=== PATIENT | male | born 1955 | race Caucasian/White ===

== ENCOUNTER → 2017-04-27 | Outpatient (CLI) | payer BC ==
--- NOTE | 2017-04-27 12:49 | RAD ---
Indication pain. No history of injury. Internally and externally rotated views of the right shoulder were obtained as well as a Y view. There are some mild degenerative changes at the AC joint. Acute bony finding is not apparent
== END | disposition home or self-care (01) ==
LOC: DXRADRC 12:08
PROVIDERS: ATTEND Nurse Practitioner Family
DX: M25.511 Pain in right shoulder (principal)
CPT/HCPCS: 73030

== ENCOUNTER → 2017-05-19 | Outpatient (CLI) | payer BC ==
--- NOTE | 2017-05-20 09:09 | RAD ---
Exam performed: 3 views right foot. History: Osteomyelitis second toe. Date of service: 05/19/17. Comparison: None available 3 views right foot findings: There is bony erosion and destruction involving the distal phalanx of the second toe with diffuse soft tissue swelling. There is generalized osteopenia. Diffuse soft tissue swelling is seen in the dorsal aspect of the foot with atheromatous calcification and soft tissue calcifications around the forefoot. Small plantar calcaneal spur. Impression: Bony erosion and destructive changes in the distal findings of the right second digit. Findings consistent with osteomyelitis.
== END | disposition home or self-care (01) ==
LOC: DXRADRC 11:45
PROVIDERS: ATTEND Podiatrist Foot & Ankle Surgery
DX: M85.88 Other specified disorders of bone density and structure, other site (principal); M77.31 Calcaneal spur, right foot
CPT/HCPCS: 73630

== ENCOUNTER → 2017-07-05 | Outpatient (CLI) | payer BC ==
--- NOTE | 2017-07-05 13:23 | RAD ---
APPROVED REPORT Patient Location : OUT-PATIENT Indications Varicose Veins Grayscale imaging of the bilateral greater and lesser saphenous veins does not reveal any evidence of thrombus on limited imaging. Spectral and color Doppler study does not reveal any evidence of reflux bilaterally. The right great saphenous vein measures 5 mm and the left great saphenous vein measures 4 mm. The bilateral lesser saphenous veins measure 3 mm. Critical Notification Critical Value: No <Conclusion> No evidence of reflux in the bilateral greater and lesser saphenous veins
== END | disposition home or self-care (01) ==
LOC: US 09:46
PROVIDERS: ATTEND Internal Medicine Cardiovascular Disease
DX: I87.1 Compression of vein (principal)
CPT/HCPCS: 93970

== ENCOUNTER → 2017-08-17 | Outpatient (CLI) | payer BC ==
[2017-08-17 15:00] LABS: FREE T4 0.97 ng/dL (0.76-1.46); THYROID STIM HORMONE (TSH) 0.974 uIU/mL (0.358-3.740)
== END | disposition home or self-care (01) ==
LOC: LAB 10:40
PROVIDERS: ATTEND Nurse Practitioner Family
DX: E03.9 Hypothyroidism, unspecified (principal)
CPT/HCPCS: 84439; 84443; 84481

== ENCOUNTER → 2017-10-27 | Outpatient (CLI) | payer BC ==
--- NOTE | 2017-10-27 11:55 | RAD ---
Bilateral feet, 6 views, 10/27/2017: History: Bilateral foot pain, neuropathy There is severe patchy bony demineralization. Since the study 12/11/2015 there has been amputation of the distal aspect of the left second toe at the PIP joint level. No acute fracture or destructive bony lesion is seen. There is moderate degenerative change at the left midfoot level particularly at the first through third tarsal-metatarsal joints. There is severe flattening of the left plantar arch. There is also moderately severe degenerative change at the left ankle joint. On the right there has been interval amputation of the second toe since the 05/19/2017 exam. No acute fracture or destructive bony lesion is seen. There is moderate degenerative change at the right midfoot level medially. There is a mild pes planus deformity. There is mild degenerative change at the right ankle joint. Several periarticular soft tissue calcifications at the right ankle level are unchanged. IMPRESSION: 1. Severe bony demineralization. 2. Previous amputations at the second toe levels bilaterally. 3. Moderate degenerative changes particularly at the midfoot levels bilaterally, and at the ankle joints, worse on the left. 4. Pes planus deformities. 5. No definite acute bony abnormality.
== END | disposition home or self-care (01) ==
LOC: DXRAD 11:04
PROVIDERS: ATTEND Podiatrist Foot & Ankle Surgery
DX: L97.529 Non-pressure chronic ulcer of other part of left foot with unspecified severity (principal); M79.671 Pain in right foot; M21.42 Flat foot [pes planus] (acquired), left foot; M21.41 Flat foot [pes planus] (acquired), right foot
CPT/HCPCS: 73630

== ENCOUNTER → 2017-12-29 | Outpatient (CLI) | payer BC ==
--- NOTE | 2017-12-29 12:37 | RAD ---
Right foot, 3 views, 12/29/2017: History: Possible osteomyelitis of the third toe Weightbearing views were obtained as requested. There is surgical absence of the second toe at the MTP joint level. There is cortical destruction involving the terminal tuft of the distal phalanx of the middle toe. On the previous study of 10/27/2017 the terminal tuft was slightly deformed, however, there were normal sclerotic margins. The findings suggest interval new bone destruction. There is adjacent soft tissue swelling. No other destructive bony lesion or fracture is seen. There are moderate scattered degenerative changes. Periarticular soft tissue calcifications are again noted in the ankle region anteriorly and posteriorly. Arterial calcifications are evident. IMPRESSION: 1. Demineralization. 2. Scattered degenerative changes. 3. Minimal cortical destruction involving the terminal tuft of the distal phalanx of the middle toe compatible with osteomyelitis.
[2017-12-29 13:06] LABS: BASO # 0.1 x10^3/uL (0.0-0.2); BASO % 1 % (0-3); EOS # 0.1 x10^3/uL (0.0-0.7); EOS % 1 % (0-3); HEMATOCRIT 42.5 % (39.0-53.0); HEMOGLOBIN 13.8 g/dL (13.0-17.5); LYMPH # 2.1 x10^3/uL (1.0-4.8); LYMPH % 21 % (24-48); MEAN CORPUSCULAR HEMOGLOBIN 29 pg (25-35); MEAN CORPUSCULAR HGB CONC 32 g/dL (31-37); MEAN CORPUSCULAR VOLUME 90 fL (79-100); MONO # 0.9 x10^3/uL (0.0-1.1); MONO % 9 % (0-9); NEUT # 6.7 x10^3uL (1.8-7.7); NEUT % 68 % (31-73); PLATELET COUNT 327 x10^3/uL (140-400); RED BLOOD COUNT 4.72 x10^6/uL (4.30-5.70); RED CELL DISTRIBUTION WIDTH 14.1 % (11.5-14.5); WHITE BLOOD COUNT 9.8 x10^3/uL (4.0-11.0)
[2017-12-29 13:17] LABS: ALBUMIN 3.5 g/dL (3.4-5.0); C REACTIVE PROTEIN 19.1 mg/L (0-3.3); CALCIUM 9.2 mg/dL (8.5-10.1); CREATININE 1.2 mg/dL (0.7-1.3); GFR 61.6; POTASSIUM 4.1 mmol/L (3.5-5.1); TOTAL BILIRUBIN 0.3 mg/dL (0.2-1.0)
[2017-12-29 14:15] LABS: SEDIMENTATION RATE 3 (0-15)
== END | disposition home or self-care (01) ==
LOC: DXRAD 11:36
PROVIDERS: ATTEND Podiatrist Foot & Ankle Surgery
DX: M86.8X7 Other osteomyelitis, ankle and foot (principal); M81.8 Other osteoporosis without current pathological fracture
CPT/HCPCS: 36415; 73630; 80053; 85025; 85651; 86140

== ENCOUNTER → 2018-12-21 | Outpatient (CLI) | payer BC ==
[2018-12-21 11:42] LABS: BASO % 1 % (0-3); EOS # 0.2 x10^3/uL (0.0-0.7); EOS % 3 % (0-3); HEMATOCRIT 39.9 % (39.0-53.0); HEMOGLOBIN 12.9 g/dL (13.0-17.5); LYMPH # 1.4 x10^3/uL (1.0-4.8); LYMPH % 22 % (24-48); MEAN CORPUSCULAR HEMOGLOBIN 27 pg (25-35); MEAN CORPUSCULAR HGB CONC 33 g/dL (31-37); MEAN CORPUSCULAR VOLUME 84 fL (79-100); MONO # 0.8 x10^3/uL (0.0-1.1); MONO % 12 % (0-9); NEUT % 63 % (31-73); PLATELET COUNT 324 x10^3/uL (140-400); RED BLOOD COUNT 4.76 x10^6/uL (4.30-5.70); RED CELL DISTRIBUTION WIDTH 16.5 % (11.5-14.5); WHITE BLOOD COUNT 6.4 x10^3/uL (4.0-11.0)
[2018-12-21 11:51] LABS: ALBUMIN 3.3 g/dL (3.4-5.0); DIRECT BILIRUBIN 0.1 mg/dL (0.0-0.2); TOTAL BILIRUBIN 0.4 mg/dL (0.2-1.0); TOTAL PROTEIN 6.7 g/dL (6.4-8.2)
== END | disposition home or self-care (01) ==
LOC: LAB 10:47
PROVIDERS: ATTEND Dermatology
DX: Z51.81 Encounter for therapeutic drug level monitoring (principal); C44.92 Squamous cell carcinoma of skin, unspecified; Z85.828 Personal history of other malignant neoplasm of skin; Z85.89 Personal history of malignant neoplasm of other organs and systems
CPT/HCPCS: 36415; 80061; 80076; 85025

== ENCOUNTER → 2019-02-23 | Outpatient (CLI) | payer BC ==
[2019-02-23 12:09] LABS: BASO % 1 % (0-3); EOS # 0.2 x10^3/uL (0.0-0.7); EOS % 3 % (0-3); HEMATOCRIT 39.4 % (39.0-53.0); HEMOGLOBIN 12.8 g/dL (13.0-17.5); LYMPH # 1.8 x10^3/uL (1.0-4.8); LYMPH % 31 % (24-48); MEAN CORPUSCULAR HEMOGLOBIN 28 pg (25-35); MEAN CORPUSCULAR HGB CONC 32 g/dL (31-37); MEAN CORPUSCULAR VOLUME 87 fL (79-100); MONO # 0.7 x10^3/uL (0.0-1.1); MONO % 12 % (0-9); NEUT # 3.1 x10^3uL (1.8-7.7); NEUT % 53 % (31-73); PLATELET COUNT 327 x10^3/uL (140-400); RED BLOOD COUNT 4.52 x10^6/uL (4.30-5.70); RED CELL DISTRIBUTION WIDTH 18.9 % (11.5-14.5); WHITE BLOOD COUNT 5.9 x10^3/uL (4.0-11.0)
[2019-02-23 12:26] LABS: ALBUMIN 3.2 g/dL (3.4-5.0); DIRECT BILIRUBIN 0.1 mg/dL (0.0-0.2); TOTAL BILIRUBIN 0.3 mg/dL (0.2-1.0); TOTAL PROTEIN 6.6 g/dL (6.4-8.2)
== END | disposition home or self-care (01) ==
LOC: LAB 11:29
PROVIDERS: ATTEND Dermatology
DX: Z51.81 Encounter for therapeutic drug level monitoring (principal); C44.92 Squamous cell carcinoma of skin, unspecified; Z85.89 Personal history of malignant neoplasm of other organs and systems; Z85.828 Personal history of other malignant neoplasm of skin
CPT/HCPCS: 36415; 80076; 85025

== ENCOUNTER → 2019-03-27 | Outpatient (CLI) | payer BC ==
[2019-03-27 11:38] LABS: BASO % 1 % (0-3); EOS # 0.2 x10^3/uL (0.0-0.7); EOS % 2 % (0-3); HEMATOCRIT 39.4 % (39.0-53.0); HEMOGLOBIN 12.6 g/dL (13.0-17.5); LYMPH # 1.7 x10^3/uL (1.0-4.8); LYMPH % 22 % (24-48); MEAN CORPUSCULAR HEMOGLOBIN 29 pg (25-35); MEAN CORPUSCULAR HGB CONC 32 g/dL (31-37); MEAN CORPUSCULAR VOLUME 89 fL (79-100); MONO % 14 % (0-9); NEUT # 4.6 x10^3uL (1.8-7.7); NEUT % 61 % (31-73); PLATELET COUNT 335 x10^3/uL (140-400); RED BLOOD COUNT 4.43 x10^6/uL (4.30-5.70); RED CELL DISTRIBUTION WIDTH 16.7 % (11.5-14.5); WHITE BLOOD COUNT 7.5 x10^3/uL (4.0-11.0)
[2019-03-27 11:46] LABS: ALBUMIN 3.3 g/dL (3.4-5.0); CALCIUM 9.1 mg/dL (8.5-10.1); CREATININE 1.9 mg/dL (0.7-1.3); GFR 36.1; POTASSIUM 4.1 mmol/L (3.5-5.1); TOTAL BILIRUBIN 0.3 mg/dL (0.2-1.0); TOTAL PROTEIN 6.7 g/dL (6.4-8.2)
[2019-03-27 19:49] LABS: FREE T4 1.1 ng/dL (0.76-1.46); THYROID STIM HORMONE (TSH) 0.373 uIU/mL (0.358-3.740)
== END | disposition home or self-care (01) ==
LOC: LAB 10:02
PROVIDERS: ATTEND Physician Assistant Medical
DX: E03.9 Hypothyroidism, unspecified (principal); E78.5 Hyperlipidemia, unspecified
CPT/HCPCS: 36415; 80053; 80061; 84439; 84443; 84481; 85025

== ENCOUNTER → 2019-12-15 | Outpatient (CLI) | payer BC ==
--- NOTE | 2019-12-15 12:12 | RAD ---
Examination: KNEE RIGHT 3V History: Pain Comparison/Correlation: None Findings: Total 3 images of the right knee were obtained. Valgus deformity is present. Mild remodeling of the lateral compartment is present with spurring. Spurring is especially present at the patellofemoral compartment. Moderate size right knee joint effusion is present. No marked joint space narrowing. Marked arterial vascular calcification is present. No fracture or bone destruction. Impression: Valgus deformity. Joint effusion. Spurring and mild lateral compartment remodeling. Electronically signed by: Keven Mcclure MD (12/15/2019 12:09 PM) [id number]
--- NOTE | 2019-12-15 12:20 | RAD ---
Examination: HIP RIGHT 2V WITH PELVIS History: Right hip and pelvic pain. Comparison/Correlation: None Findings: Frontal view of the pelvis, frontal view of the right hip, and frog leg lateral views of the right hip were provided. Mild narrowing of the lateral aspect of the right hip joint is present. No fracture or bone destruction. Surgical clips are present overlying the peroneal level. Soft tissues are unremarkable. Impression: No acute process. Consider further evaluation if occult process is a persistent concern. Electronically signed by: Keven Mcclure MD (12/15/2019 12:17 PM) [id number]
== END ==
LOC: DXRAD 11:25
PROVIDERS: ATTEND Physician Assistant Medical
DX: M25.461 Effusion, right knee (principal); M21.061 Valgus deformity, not elsewhere classified, right knee
CPT/HCPCS: 73502; 73562

== ENCOUNTER → 2020-01-04 | Outpatient (CLI) | payer BC ==
--- NOTE | 2020-01-04 12:08 | RAD ---
EXAM: Right knee, 3 views. HISTORY: Pain. COMPARISON: 08/11/2019 FINDINGS: 3 views of the right knee are obtained. There is severe patellofemoral compartment predominant truck a portal spurring with lateral compartment bony remodeling. There is Tori valgus. There is a small joint effusion. There are multiple joint loose bodies. IMPRESSION: 1. Severe osteoarthritis the right knee with small joint effusion and joint loose bodies. 2. Mild bony remodeling of the lateral compartment and right genu valgus. Electronically signed by: Jana Marshall MD (01/04/2020 12:05 PM) [facility]
== END ==
LOC: MERGE 11:49 → DXRAD 11:49
PROVIDERS: ATTEND Orthopaedic Surgery
DX: S72.421A Displaced fracture of lateral condyle of right femur, initial encounter for closed fracture (principal); S72.431A Displaced fracture of medial condyle of right femur, initial encounter for closed fracture; M17.11 Unilateral primary osteoarthritis, right knee; M25.461 Effusion, right knee; M21.061 Valgus deformity, not elsewhere classified, right knee; X58.XXXA Exposure to other specified factors, initial encounter; Y93.89 Activity, other specified; Y92.89 Other specified places as the place of occurrence of the external cause; Y99.8 Other external cause status
CPT/HCPCS: 73562

== ENCOUNTER → 2020-04-26 | Outpatient (CLI) | payer BC ==
--- NOTE | 2020-04-26 13:17 | RAD ---
PROCEDURE: SHOULDER 2+V LEFT CLINICAL INDICATION / HISTORY: Reason: LEFT SHOULDER PAIN / Spl. Instructions: / History: . TECHNIQUE: AP internal and external rotation views with a Y- view were obtained. COMPARISON: Right shoulder x-rays of 04/27/2017 FINDINGS: No fracture, dislocation or bone destruction is identified. There are mild degenerative changes at the left AC joint. No calcifications are seen in relation to the rotator cuff insertion. IMPRESSION: Mild left acromioclavicular degenerative change. No acute osseous abnormality Electronically signed by: Hazel Crum MD (04/26/2020 1:14 PM) [id number]
== END | disposition home or self-care (01) ==
LOC: PMG 11:27
PROVIDERS: ATTEND Physician Assistant Medical
DX: M19.012 Primary osteoarthritis, left shoulder (principal)
CPT/HCPCS: 73030